=== PATIENT | female | born 1940 | race Caucasian/White ===

== ENCOUNTER 2020-05-18 15:13 | Inpatient (IN) | payer MEDICARE ==
[~2020-05-18] VITALS: Ht 152.4 cm; Wt 63.5 kg
--- NOTE | 2020-05-18 15:40 | NUR ---
patient bibra from home, c/o weakness, on room air, breathing evenly and unlabored. connected to the monitor and pulse ox. kept comfortable, will continue to monitor accordingly.
--- NOTE | 2020-05-18 15:40 | NUR ---
urine collected and sent to lab
[2020-05-18 15:53] LABS: BASOPHILS % (AUTO) 0.5 % (0.0-2.0); EOSINOPHILS % (AUTO) 0.5 % (0.0-6.0); HEMATOCRIT 33 % (33-45); HEMOGLOBIN 10.6 g/dL (11.5-14.8); LYMPHOCYTES # (AUTO) 0.6 /CMM (0.8-4.8); LYMPHOCYTES % (AUTO) 14.2 % (20.0-44.0); MEAN CORPUSCULAR HGB CONC 32 g/dl (31.0-36.0); MEAN CORPUSCULAR VOLUME 94 fL (82-100); MONOCYTES # (AUTO) 1.1 /CMM (0.1-1.30); MONOCYTES % (AUTO) 23.2 % (2.0-12.0); NEUTROPHILS # (AUTO) 2.8 /CMM (1.8-8.9); NEUTROPHILS % (AUTO) 61.6 % (43.0-81.0); PLATELET COUNT (AUTO) 126 /CMM (150-450); RED BLOOD CELL COUNT(AUTO) 3.47 MIL/uL (4.0-5.2); WHITE BLOOD COUNT (AUTO) 4.6 K/uL (4.3-11.0)
[2020-05-18 15:55] LABS: APPEARANCE,URINE Clear (CLEAR); BILIRUBIN,URINE Negative (NEGATIVE); BLOOD, URINE Trace-intact Ery/uL (NEGATIVE); COLOR,URINE Yellow (YELLOW); KETONES,URINE Negative (NEGATIVE); LEUKOCYTE ESTERASE ,URINE Negative (NEGATIVE); NITRITE, URINE Negative (NEGATIVE); PROTEIN,URINE 30 mg/dl (NEGATIVE); UGLUCOSE Negative (NEGATIVE); UROBILINOGEN,URINE 0.2 EU/dL (0.2)
[2020-05-18 16:03] LABS: ALCOHOL, BLOOD < 3 mg/dL (0-0); MAGNESIUM 1.8 mg/dL (1.8-2.4)
[2020-05-18 16:04] LABS: CALCIUM, SERUM 8.3 mg/dL (8.5-10.1); CARBON DIOXIDE 32 mmol/L (21-32); CHLORIDE 103 mmol/L (98-107); CREATININE 1.2 mg/dL (0.6-1.3); GLUCOSE 127 mg/dL (74-106); POTASSIUM 3.8 mmol/L (3.5-5.1); SODIUM SERUM 142 mmol/L (136-145); UREA NITROGEN, BLOOD 20 mg/dL (7-18)
[2020-05-18 16:18] LABS: BACTERIA,URINE Rare /HPF (None Seen); SQUAMOUS EPITHELIAL CELL,UR Few /HPF (None Seen); WBC,URINE NONE SEEN /HPF (0-3)
[2020-05-18 16:20] LABS: ALANINE AMINOTRANSFERASE 28 U/L (12-78); ALBUMIN 2.7 g/dL (3.4-5.0); ALKALINE PHOSPHATASE 73 U/L (46-116); ASPARTATE AMINOTRANSFERASE 33 U/L (15-37); BILIRUBIN,DIRECT 0.1 mg/dL (0.0-0.2); BILIRUBIN,TOTAL 0.2 mg/dL (0.2-1.0); TOTAL PROTEIN, SERUM 6.2 g/dL (6.4-8.2)
--- NOTE | 2020-05-18 16:51 | NUR ---
received a call from the lab for covid 19 result "positive", notified
--- NOTE | 2020-05-18 16:57 | NUR ---
MOVE SHEET SUBMITTED AND CALLED FOR A TELE BED.
[2020-05-18] MEDS ORDERED: IV NS 0.9% 500 ML BAG IV ONE (17:00)
--- NOTE | 2020-05-18 17:01 | NUR ---
[facility] CALLED ITS DR. BHAGAT
--- NOTE | 2020-05-18 17:05 | NUR ---
GOT BED 104
--- NOTE | 2020-05-18 17:05 | NUR ---
MEDRECON DONE: PT LIVES AT HOME WITH 24HR CAREGIVER LACEY CELLPHONE ([phone]) PER CG PT HAS HEARING PROBLEM AND THE HEARING AID IS LEFT AT HOME.
[2020-05-18] MEDS ORDERED: BUPR-51 PO (17:13)
[2020-05-18] MEDS ORDERED: HYDR-3204 MT (17:13)
[2020-05-18] MEDS ORDERED: OLAN10TA3 PO (17:13)
[2020-05-18] MEDS ORDERED: VORT20TA PO (17:13)
[2020-05-18] MEDS ORDERED: HYDR25TA4 PO (17:13)
[2020-05-18] MEDS ORDERED: DONE10TA44 PO (17:13)
[2020-05-18] MEDS ORDERED: METO25TA20 PO (17:13)
[2020-05-18] MEDS ORDERED: LEVO125T8 PO (17:13)
[2020-05-18] MEDS ORDERED: MEMA10TA PO (17:13)
[2020-05-18] MEDS ORDERED: PANT40TA4 PO (17:13)
[2020-05-18] MEDS ORDERED: ONDA-97 PO (17:13)
[2020-05-18] MEDS ORDERED: LOSA50TA39 PO (17:13)
--- NOTE | 2020-05-18 17:18 | NUR ---
report given to Di BRANTLEY for crispin
[2020-05-18 17:37] LABS: BAND % (MANUAL) 5 % (0.0-5.0); LYMPHOCYTES % (MANUAL) 15 % (16-48); MONOCYTES % (MANUAL) 14 % (0-11.0); NEUTROPHILS % (MANUAL) 66 (42-76)
--- NOTE | 2020-05-18 17:50 | NUR ---
wheeled patient via gurney accompanied by RN and emt in no distress, RN at bedside to assume care.
--- NOTE | 2020-05-18 17:55 | NUR ---
DOREEN ANGUIANO BROTHER CELLPHONE [phone] [place] [phone]
[2020-05-18] MEDS ORDERED: ONDANSETRON HCL/PF 4 MG/2 ML VIAL IVP PRN (18:00)
[2020-05-18] MEDS ORDERED: ACETAMINOPHEN 325 MG TABLET PO PRN (18:00)
[2020-05-18] MEDS ORDERED: MAGNESIUM HYDROXIDE 30 ML UDC PO PRN (18:00)
[2020-05-18] MEDS ORDERED: Z GUARD REMEDY 2 OZ OINT TP PRN (18:00)
[2020-05-18] MEDS: CHOLECALCIFEROL 1,000 UNIT TABLET (VIT D3) PO SCH ×2 (18:00→19:11)
[2020-05-18] MEDS: ZINC SULFATE 220 MG CAPSULE PO SCH ×2 (18:00→19:13)
[2020-05-18] MEDS ORDERED: HYDROCODONE/APAP 5/325MG 1 EACH TABLET PO PRN (18:00)
[2020-05-18] MEDS ORDERED: MAG HYDROX/AL HYDROX/SIMETH 30 ML UDC PO PRN (18:00)
[2020-05-18] MEDS: ASCORBIC ACID 500 MG TABLET PO SCH ×2 (18:00→19:11)
[2020-05-18] MEDS ORDERED: ZOLPIDEM TARTRATE 5 MG TABLET PO PRN (18:00)
[2020-05-18] MEDS: ENOXAPARIN SODIUM 30 MG/0.3 ML DISP.SYRIN SQ SCH ×2 (18:00→19:12)
--- NOTE | 2020-05-18 18:08 | NUR ---
OPEN NOTE RECEIVED PATIENT FROM ER VIA JUWANRCORA, ON ROOM AIR, SATURATING WELL WITH 97%, NO SOB, A/OX2, INCONTINENT, SKIN INTACT, UPPER EXTREMITIES SLIGHTLY CONTRACTED, FACE IS ASYMMETRICAL, SAFETY MEASURES IMPLEMENTED, BED IN LOWEST POSITION, CALL LIGHT IN REACH WILL CONT TO MONITOR
--- NOTE | 2020-05-18 18:11 | NUR ---
CALL BROTHER DOREEN TO COLLECT PATIENT INFO, NO RESPONSE, CALLED CAREGIVER LACEY NO RESPONSE
[2020-05-18 18:15] VITALS: BP 147/72
--- NOTE | 2020-05-18 18:36 | NUR ---
Km called back, gave brief hx of patient
--- NOTE | 2020-05-18 18:37 | NUR ---
Patient is agitated, screaming, fighting, trying to leave. MD notified. Per caregiver hx she has antianxiety medications, will follow up with
--- NOTE | 2020-05-18 19:00 | NUR ---
REFUSED ALL MEDS
--- NOTE | 2020-05-18 19:37 | NUR ---
PATIENT IS ON ROOM AIR, IN BED, SATURATING 96%, A/OX1, AGITATED, IV LINE ON R AC, INTACT AND FLUSHED, COMFORT NEEDS ATTENDED, SAFETY MEASURES IMPLEMENTED, BED IN LOWEST POSITION, SIDE RAIL UP X 2 , HOB ELEVATED; WILL ENDORSE PM SHIFT NURSE FOR SHAYY
--- NOTE | 2020-05-18 19:37 | NUR ---
PATIENT REMAINS IN BED, AGITATED, REFUSED MEDICATIONS, NOTIFIED AT 1900
[2020-05-18 20:00] VITALS: BP 144/86
[2020-05-18] MEDS: IV D5/0.45 NACL 1,000 ML IV PRN (22:28)
[2020-05-19] VITALS: BP 115/65
--- NOTE | 2020-05-19 01:40 | NUR ---
RN OPENING NOTE RECEIVED A PATIENT IN BED RESTING ALERT ORIENTED X2 BREATHING IS EVEN AND UNLABORED NO SOB NOT ACUTE DISTRESS AT THIS TIME,ON OXYGEN 6L VIA MASK O2:93%,IV SITE IS ON RIGHT HAND INTACT,PATENT, 0N IV HYDRATION 1/2 NS 50CC/HOURS,ON G-TUBE FEEDING GLUCERNA 1.2 50CC/HOURS, BED IN LOWEST POSITION, SAFETY MEASURE IMPLEMENTED,CONTINUE TO MONITOR. Addendum: 05/19/20 at 0212 by CHRISTINA OJEDA RN RN OPENING NOTE RECEIVED A PATIENT IN BED RESTING ALERT ORIENTED X2 BREATHING IS EVEN AND UNLABORED NO SOB NOT ACUTE DISTRESS NOTED AT THIS TIME, ON OXYGEN 2L/MIN VIA NASAL CANUULA,IV SITE IS ON RIGHT HAND AND RIGHT AC INTACT AND PATENT,ON IV HYDRATION D51/2 NS 75 CC/HR,BED IN LOWEST POSITION,SAFETY MEASURE IMPLEMENTED,CONTINUE TO MONITOR.
[2020-05-19 04:00] VITALS: BP 116/59
--- NOTE | 2020-05-19 06:50 | NUR ---
RN CLOSING NOTE PATIENT REMAINS ALERT ORIENTED X2 VERBALLY RESPONSIVE BREATHING IS EVEN AND UNLABORED NO OXYGEN 2L VIA NC IV D51/2 NS 75CC/HR ON RIGHT HAND,AND RIGHT AC,IV SITE IS INTACT PATENT,KEPT CLEAN AND DRY ALL THE TIME,KEPT COMFORTABLE,ENDORSE NEXT COMING SHIFT FOR CONTINUATION OF CARE.
[2020-05-19 07:02] LABS: BASOPHILS % (AUTO) 0.5 % (0.0-2.0); EOSINOPHILS % (AUTO) 0.7 % (0.0-6.0); HEMATOCRIT 35 % (33-45); HEMOGLOBIN 11.2 g/dL (11.5-14.8); LYMPHOCYTES # (AUTO) 0.9 /CMM (0.8-4.8); LYMPHOCYTES % (AUTO) 24.6 % (20.0-44.0); MEAN CORPUSCULAR HGB CONC 32 g/dl (31.0-36.0); MEAN CORPUSCULAR VOLUME 93 fL (82-100); MONOCYTES # (AUTO) 0.7 /CMM (0.1-1.30); MONOCYTES % (AUTO) 19.9 % (2.0-12.0); NEUTROPHILS % (AUTO) 54.3 % (43.0-81.0); PLATELET COUNT (AUTO) 121 /CMM (150-450); RED BLOOD CELL COUNT(AUTO) 3.73 MIL/uL (4.0-5.2); WHITE BLOOD COUNT (AUTO) 3.7 K/uL (4.3-11.0)
[2020-05-19 07:12] LABS: THYROID STIMULATING HORMONE 0.147 uIU/mL (0.358-3.74)
[2020-05-19] MEDS: PANTOPRAZOLE 40 MG TABLET.DR PO SCH ×2 (07:30→07:41)
--- NOTE | 2020-05-19 07:30 | NUR ---
RN Opening note Received patient in bed, AO x 1 confused, able to responds all stimuli. Does no appears pain or distress, ski is warm to touch, kept clean/dry, intact IV site. Respiratory even and unlabored with oxygen at 2LPM via n/c. Keep bed in locked with elevated HOB for ensure airway. Call light within reach, will continue to monitor for safety.
[2020-05-19 07:38] LABS: CALCIUM, SERUM 8.6 mg/dL (8.5-10.1); PHOSPHORUS 4.4 mg/dL (2.5-4.9); POTASSIUM 3.5 mmol/L (3.5-5.1)
--- NOTE | 2020-05-19 07:40 | NUR ---
patient climbing on bed,unable to follow command,confused,high risk for fall ,bilateral soft wrist restrsint initiated for safety per md.fall risk precaution observed,will continue to monitor.
--- NOTE | 2020-05-19 07:44 | NUR ---
Patient confuse and attempting out of bed, received soft wrist restrain order. Will continue to bed alarm on and monitor for safety.
[2020-05-19 08:00] VITALS: BP 161/91
[2020-05-19] MEDS: LEVOTHYROXINE SODIUM 125 MCG TABLET PO SCH (09:00)
[2020-05-19] MEDS: ZINC SULFATE 220 MG CAPSULE PO SCH (09:00)
[2020-05-19] MEDS: MEMANTINE HCL 5 MG TABLET PO SCH ×2 (09:00→16:19)
[2020-05-19] MEDS: CHOLECALCIFEROL 1,000 UNIT TABLET (VIT D3) PO SCH (09:00)
[2020-05-19] MEDS: DONEPEZIL 5 MG TABLET PO SCH (09:00)
[2020-05-19] MEDS: ASCORBIC ACID 500 MG TABLET PO SCH (09:00)
[2020-05-19] MEDS ORDERED: PANTOPRAZOLE 40 MG TABLET.DR PO SCH (09:30)
[2020-05-19] MEDS ORDERED: ONDANSETRON 4 MG TAB.RAPDIS PO PRN (09:30)
[2020-05-19] MEDS: LOSARTAN POTASSIUM 50 MG TABLET PO SCH (09:30)
[2020-05-19] MEDS: BUPROPION XL 150 MG TAB.ER.24 PO SCH (09:30)
[2020-05-19] MEDS: METOPROLOL TARTRATE 25 MG TABLET PO SCH ×2 (09:30→21:00)
[2020-05-19] MEDS ORDERED: Medication Not On Formulary EA (Hydrocodone Bit/Acetaminophen (Hydrocodon-Acetaminophen MT PRN (09:30)
[2020-05-19] MEDS ORDERED: Medication Not On Formulary EA (Memantine Hcl (Namenda) 10 MG) PO SCH (09:30)
[2020-05-19] MEDS ORDERED: Medication Not On Formulary EA (Ondansetron Hcl 4 MG) PO PRN (09:30)
[2020-05-19 10:18] LABS: EOSINOPHILS % (MANUAL) 2 % (0-4); LYMPHOCYTES % (MANUAL) 27 % (16-48); MONOCYTES % (MANUAL) 19 % (0-11.0); NEUTROPHILS % (MANUAL) 52 (42-76)
[2020-05-19 12:00] VITALS: BP 123/69
[2020-05-19] MEDS: IV D5/0.45 NACL 1,000 ML IV PRN (13:15)
--- NOTE | 2020-05-19 14:55 | NUR ---
relayed to dr. hess patient room air saturation 94%.no new orders.
[2020-05-19 16:00] VITALS: BP 150/71
[2020-05-19] MEDS: ENOXAPARIN SODIUM 30 MG/0.3 ML DISP.SYRIN SQ SCH (18:00)
--- NOTE | 2020-05-19 18:30 | NUR ---
RN Closing note Patient in bed comfortably, still notice pt attempting out of the bed. Skin is warm to touch, kept clean/dry, intact new IV site. Respiratory even and unlabored in room air, no fever or cough during day shift. Keep bed in locked with elevated HOB for ensure airway and aspiration precaution. Call light within reach, will endorse mold laminator.
[2020-05-19 20:00] VITALS: BP 118/62
--- NOTE | 2020-05-19 20:00 | NUR ---
PATIENT IS RESTLESS. TRYING TO GET OUT OF BED AND KICKING ARMD AND LEGS. PATIENT IS ON RESTRAINTS BUT STILL ATTEMPTING TO GET OUT OF BED. PATIENT IS REFUSING PO MEDS SO NOT ABLE TO GIVE ANTIPSYCHOTIC MEDS.
--- NOTE | 2020-05-19 20:20 | NUR ---
CALLED LENKASARAH BOOKKEEPERS SUPERVISOR. NOTIFIED HER ABOUT PATIENTS STATUS AND HER NON COMPLIANCE TO TAKE PO MEDS. SARAH ORDERED ATIVAN IV PUSH 1MG Q6H PRN FOR AGITATION. WILL ADMINISTER AND MONITOR PATIENT.
[2020-05-19] MEDS: LORAZEPAM INJ 2 MG/ML VIAL IV PRN (20:38)
--- NOTE | 2020-05-19 21:06 | NUR ---
METOPROLOL NOT ADMINISTERED AT 2100. PATIENT IS REFUSING TO TAKE PO MEDS. BP IS 118/68 HR AT 86. WILL CONTINUE TO MONITOR.
[2020-05-19] MEDS: OLANZAPINE 10 MG TABLET PO SCH (22:00)
[2020-05-20] VITALS: BP 140/80
[2020-05-20] MEDS: IV D5/0.45 NACL 1,000 ML IV PRN ×2 (01:58→15:29)
[2020-05-20 04:00] VITALS: BP 137/99
[2020-05-20] MEDS: LORAZEPAM INJ 2 MG/ML VIAL IV PRN ×2 (04:26→22:43)
[2020-05-20 06:36] LABS: BASOPHILS % (AUTO) 0.5 % (0.0-2.0); EOSINOPHILS % (AUTO) 0.7 % (0.0-6.0); HEMATOCRIT 38 % (33-45); HEMOGLOBIN 12.3 g/dL (11.5-14.8); LYMPHOCYTES # (AUTO) 0.7 /CMM (0.8-4.8); LYMPHOCYTES % (AUTO) 17.5 % (20.0-44.0); MEAN CORPUSCULAR HGB CONC 33 g/dl (31.0-36.0); MEAN CORPUSCULAR VOLUME 93 fL (82-100); MONOCYTES # (AUTO) 0.5 /CMM (0.1-1.30); MONOCYTES % (AUTO) 13.3 % (2.0-12.0); NEUTROPHILS # (AUTO) 2.6 /CMM (1.8-8.9); PLATELET COUNT (AUTO) 122 /CMM (150-450); RED BLOOD CELL COUNT(AUTO) 4.06 MIL/uL (4.0-5.2); WHITE BLOOD COUNT (AUTO) 3.9 K/uL (4.3-11.0)
[2020-05-20 06:39] LABS: CALCIUM, SERUM 8.5 mg/dL (8.5-10.1); CREATININE 0.9 mg/dL (0.6-1.3); POTASSIUM 3.5 mmol/L (3.5-5.1)
[2020-05-20] MEDS: PANTOPRAZOLE 40 MG TABLET.DR PO SCH (07:30)
[2020-05-20 08:00] VITALS: BP 139/88
--- NOTE | 2020-05-20 08:00 | NUR ---
FINANCIAL AID OFFICER NOTES PATIENT IS NOT AWAKE AND ALERT RESTRAINS ORDER COMPLETED AND STOPPED.
--- NOTE | 2020-05-20 08:15 | NUR ---
DAY TREATMENT CLINICIAN/ART THERAPIST NOTES PATIENT IN BED SLEEPING, ONLY AROUSES WITH DEEP PAIN STIMULI. ON DROPLET ISOLATION. NO SOB OR DISCOMFORT NOTED AT THIS TIME. ON BILATERAL RESTRAINS. NO SOB OR DISCOMFORT NOTED AT THIS TIME. CALL LIGHT WITHIN REACH BED AT THE LOWEST POSITION LOCKED. WILL CONTINUE TO MONITOR THE PATIENT.
--- NOTE | 2020-05-20 08:29 | NUR ---
WOUND CARE CONSULT: REVIEWED CHART, NURSING DOCUMENTATION AND SPOKE WITH RN REGARDING SKIN PROTECTION. DISCUSSED SKIN PROTECTION RECOMMENDATIONS WITH NURSING STAFF. WILL SEE PRN. BARRIENTOS IN AGREEMENT WITH PLAN OF CARE.
[2020-05-20] MEDS ORDERED: Medication Not On Formulary EA (Donepezil Hcl 10 MG) PO SCH (09:00)
[2020-05-20] MEDS: DONEPEZIL 5 MG TABLET PO SCH (09:00)
[2020-05-20] MEDS: ZINC SULFATE 220 MG CAPSULE PO SCH (09:00)
[2020-05-20] MEDS: ASCORBIC ACID 500 MG TABLET PO SCH (09:00)
[2020-05-20] MEDS: LEVOTHYROXINE SODIUM 125 MCG TABLET PO SCH (09:00)
[2020-05-20] MEDS: LOSARTAN POTASSIUM 50 MG TABLET PO SCH (09:00)
[2020-05-20] MEDS: METOPROLOL TARTRATE 25 MG TABLET PO SCH ×2 (09:00→20:53)
[2020-05-20] MEDS: MEMANTINE HCL 5 MG TABLET PO SCH ×2 (09:00→17:39)
[2020-05-20] MEDS: CHOLECALCIFEROL 1,000 UNIT TABLET (VIT D3) PO SCH (09:00)
[2020-05-20] MEDS: BUPROPION XL 150 MG TAB.ER.24 PO SCH (09:00)
--- NOTE | 2020-05-20 10:01 | NUR ---
COMPRESSOR HOUSE OPERATOR NOTES MORNING PO MEDS NOT ADMINISTERED MOTORCYLES FINAL INSPECTOR ROOPA AWARE
[2020-05-20 12:00] VITALS: BP 139/83
[2020-05-20 16:00] VITALS: BP 154/97
--- NOTE | 2020-05-20 16:21 | NUR ---
SAWMILL HAND NOTES PATIENT IS MORE ALERT AND SHE WAS ABLE TO EAT A CAN OF JELO. TRIES TO GET OUT OF THE BED AND REMOVES IV. PUT THE PATIENTS BACK TO RESTRAINS.
[2020-05-20] MEDS: ENOXAPARIN SODIUM 30 MG/0.3 ML DISP.SYRIN SQ SCH (17:40)
--- NOTE | 2020-05-20 19:10 | NUR ---
RN NOTE RECEIVED PATIENT IN BED RESTING WITH HOB ELEVATED. BREATHING EVEN AND NON LABORED, NO SOB NOTED AT THIS TIME. ON O2 2 L VIA NC, SATURATION IS 100% AT THIS TIME. PATIENT IS AWAKE, ALERT, CONFUSED. ON ISOLATION FOR POSITIVE COVID. IV SITE ON RIGHT WRIST GAUGE 20 IS CLEAN, DRY, AND PATENT. ON IV FLUIDS D5 HALF NS RUNNING AT 75 ML/HR. ON BILATERAL SOFT WRIST RESTRAINTS. IN NO APPARENT DISTRESS NOTED AT THIS TIME. CALL LIGHT IS WITHIN EASY REACH. WILL CONTINUE TO MONITOR.
--- NOTE | 2020-05-20 19:27 | NUR ---
SURGICAL SERVICES MANAGER NOTES PATIENT IN BED, A/OX1 ON RESTRAINS. NO SOB OR DISCOMFORT NOTED AT THIS TIME. ALL NEEDS ATTENDED, MEDICATIONS ADMINISTRATED. NO MAJOR CHANGES DURING THE DAY. PATIENT WAS ABLE TO TOLERATE CLEAR DIET. REPORT GIVEN TO FLOUR MIXER HELPER NURSE FOR SHAYY.
[2020-05-20 20:00] VITALS: BP 170/89
[2020-05-20] MEDS ORDERED: METOPROLOL TARTRATE INJ 5 MG/5 ML AMPUL IVP ONE (21:00)
[2020-05-20] MEDS: OLANZAPINE 10 MG TABLET PO SCH (22:00)
[2020-05-20] MEDS ORDERED: hydrALAZINE HCL IV 20 MG VIAL IV PRN (22:00)
--- NOTE | 2020-05-20 22:00 | NUR ---
RN NOTE PATIENT REFUSED ZYPREXA AND LOPRESSOR MED. PATIENT'S BP IS 170/89. NOTIFIED SARAH KELLOGG NP. RECEIVED NEW ORDER FOR HYDRALAZINE 10 MG IV X1. ORDERS NOTED AND CARRIED OUT. WILL CONTINUE TO MONITOR.
[2020-05-21] VITALS: BP 131/90
[2020-05-21 04:00] VITALS: BP 173/83
--- NOTE | 2020-05-21 04:15 | NUR ---
RN NOTE NOTED PATIENT'S BP OF 173/83 AROUND THIS TIME. NOTIFIED SCHEDULER CONVEYOR SARAH KELLOGG, RECEIVED NEW ORDER OF HYDRALAZINE 10MG IVP Q6H PRN FOR BP >160. ORDER NOTED AND CARRIED OUT.
[2020-05-21] MEDS: IV D5/0.45 NACL 1,000 ML IV PRN (04:16)
[2020-05-21] MEDS ORDERED: hydrALAZINE HCL IV 20 MG VIAL IV PRN (04:30)
[2020-05-21] MEDS: LORAZEPAM INJ 2 MG/ML VIAL IV PRN (05:27)
--- NOTE | 2020-05-21 06:37 | NUR ---
RN NOTE PATIENT REMAINED STABLE THROUGHOUT THE NIGHT. NO SIGNIFICANT CHANGES NOTED. REPOSITIONED Q2H. ALL DUE MEDS GIVEN AND TOLERATED WELL. PATIENT NOTED WITH ANXIETY DURING THE NIGHT. PRN ATIVAN GIVEN ORDERED. ALL NEEDS ATTENDED AND MET. PATIENT IS KEPT CLEAN, DRY, AND COMFORTABLE. IN NO APPARENT DISTRESS NOTED AT THIS TIME. WILL ENDORSE TO AM SHIFT RN FOR CONTINUATION OF CARE.
[2020-05-21 07:10] LABS: BASOPHILS % (AUTO) 0.3 % (0.0-2.0); EOSINOPHILS % (AUTO) 0.3 % (0.0-6.0); HEMATOCRIT 41 % (33-45); HEMOGLOBIN 13.2 g/dL (11.5-14.8); LYMPHOCYTES # (AUTO) 0.6 /CMM (0.8-4.8); LYMPHOCYTES % (AUTO) 16.2 % (20.0-44.0); MEAN CORPUSCULAR HGB CONC 33 g/dl (31.0-36.0); MEAN CORPUSCULAR VOLUME 92 fL (82-100); MONOCYTES # (AUTO) 0.6 /CMM (0.1-1.30); MONOCYTES % (AUTO) 14.3 % (2.0-12.0); NEUTROPHILS # (AUTO) 2.7 /CMM (1.8-8.9); NEUTROPHILS % (AUTO) 68.9 % (43.0-81.0); PLATELET COUNT (AUTO) 128 /CMM (150-450); RED BLOOD CELL COUNT(AUTO) 4.38 MIL/uL (4.0-5.2); WHITE BLOOD COUNT (AUTO) 3.9 K/uL (4.3-11.0)
[2020-05-21 07:22] LABS: CALCIUM, SERUM 8.7 mg/dL (8.5-10.1); CREATININE 0.9 mg/dL (0.6-1.3); POTASSIUM 3.5 mmol/L (3.5-5.1)
[2020-05-21] MEDS: PANTOPRAZOLE 40 MG TABLET.DR PO SCH (07:30)
[2020-05-21 08:00] VITALS: BP 122/82
--- NOTE | 2020-05-21 08:00 | NUR ---
CONSTRUCTION CODE ADMINISTRATOR NOTE RECEIVED PATIENT IN BED ON 1 LITER OF OXYGEN, 02 SAT 97% PT STILL SLEEPING AND DROWSY AND SLIGHTLY MOVING IN BED RESPONSIVE TO TACTILE AND VERBAL STIMULI. ON TELE MONITOR st 109. PT HAS R WRIST HEP LOCK INTACT AND FLUSHED WELL. ON IV FLUID ORDERED. RIGHT CHEEK IS RED IN COLOR. ADJUNCT PROFESSOR OF VOICE ROOPA NOTIFIED. OK WITH CLEAR LIQUID DIET. BED IN LOCK AND LOWEST POSITION. CALL LIGHT WITHIN REACH. UNABLE TO GIVE MEDICATION OR GIVE BREAKFAST. WILL CONTINUE TO MONITOR.
[2020-05-21] MEDS: DONEPEZIL 5 MG TABLET PO SCH (09:00)
[2020-05-21] MEDS: LEVOTHYROXINE SODIUM 125 MCG TABLET PO SCH (09:00)
[2020-05-21] MEDS: BUPROPION XL 150 MG TAB.ER.24 PO SCH (09:00)
[2020-05-21] MEDS: METOPROLOL TARTRATE 25 MG TABLET PO SCH (09:00)
[2020-05-21] MEDS: CHOLECALCIFEROL 1,000 UNIT TABLET (VIT D3) PO SCH (09:00)
[2020-05-21] MEDS ORDERED: HYDROCHLOROTHIAZIDE 25 MG TABLET PO SCH (09:00)
[2020-05-21] MEDS: ZINC SULFATE 220 MG CAPSULE PO SCH (09:00)
[2020-05-21] MEDS: MEMANTINE HCL 5 MG TABLET PO SCH (09:00)
[2020-05-21] MEDS: LOSARTAN POTASSIUM 50 MG TABLET PO SCH (09:00)
[2020-05-21] MEDS: ASCORBIC ACID 500 MG TABLET PO SCH (09:00)
--- NOTE | 2020-05-21 10:18 | NUR ---
BODY SHOP MECHANIC NOTES [place] ENTERTAINMENT MANAGER NOTIFIED THAT PT IS LETHARGIC AND DROWSY RIGHT NOW. UNABLE TO GIVE MEDICINE AND BREAKFAST. STILL WANTS TO DISCHARGE PATIENT LATER ON. WILL CONTACT WITH NERVE SPECIALIST.
[2020-05-21 12:00] VITALS: BP 131/72
--- NOTE | 2020-05-21 12:30 | NUR ---
telegraphic typewriter operator chief note spoke with immigration case manager and caregiver tatiana about discharge home, ambulance will come about 3 pm
--- NOTE | 2020-05-21 13:52 | NUR ---
BRANCH EXAMINER NOTE PATIENT FED BY PRODUCT LEAD, ATE 25% OF LUNCH,A LITTLE MORE AWAKE, ALL NEEDS ATTENDED, WILL MONITOR
--- NOTE | 2020-05-21 15:42 | NUR ---
MECHANIC SENIOR NOTES AMBULANCE ARRIVES. REPORT GIVEN. BUILDING CODE INSPECTOR REMOVED. HEP LOCK REMOVED. DRY PRESSURE DRESSING REMOVED. NO SOB NOTED BUT PT STILL SLEEPING AND RESPONDS TO TACTILE STIMULI. STILL DOES NOT OPEN EYES. SPANISH INSTRUCTOR RICKEY NOTIFIED. STILL OK TO DISCHARGE. ALL DISCHARGE INSTRUCTION GIVEN TO AMBULANCE CREW. BELONGINGS WERE CHECKED WENT HOME IN WITH NO DISTRESS..
--- NOTE | 2020-05-21 15:42 | NUR ---
PHOTOGRAPHER'S ASSISTANT NOTES PATIENT STILL SLEEPING BUT RESPONDS TO TACTILE STIMULI. PSYCHOPAEDIC NURSE ROOPA AWARE AND STILL ORDERING TO DISCHARGE. BP 124/62,HR 78, 02 SAT 93% ON ROOM AIR.
--- NOTE | 2020-05-21 15:56 | NUR ---
BUS OPERATOR NOTES SPOKE WITH CHUTE WORKER DI AND NOTIFIED HER THAT THE PATIENT WAS SENT HOME WITH THE AMBULANCE. ALSO NOTIFIED THAT SHE WAS NOT GIVEN AND MEDICATIONS OR FOOD BECAUSE SHE WAS SLEEPING AND LETHARGIC BUT RESPONSIVE TO TACTILE STIMULI.
== END 2020-05-21 15:30 | disposition home health service (06) | DRG 177 ==
LOC: ER 15:15 → TELE1 17:09
DX: U07.1 COVID-19 (principal); R40.2343 Coma scale, best motor response, flexion withdrawal, at hospital admission; E44.0 Moderate protein-calorie malnutrition; G93.40 Encephalopathy, unspecified; F03.90 Unspecified dementia, unspecified severity, without behavioral disturbance, psychotic disturbance, mood disturbance, and anxiety; E86.0 Dehydration; E03.9 Hypothyroidism, unspecified; D69.6 Thrombocytopenia, unspecified; Z68.23 Body mass index [BMI] 23.0-23.9, adult; D64.9 Anemia, unspecified; E78.5 Hyperlipidemia, unspecified; F09 Unspecified mental disorder due to known physiological condition; I10 Essential (primary) hypertension; G24.9 Dystonia, unspecified; F32.9 Major depressive disorder, single episode, unspecified; D72.819 Decreased white blood cell count, unspecified; I67.2 Cerebral atherosclerosis; Z79.899 Other long term (current) drug therapy; R40.2143 Coma scale, eyes open, spontaneous, at hospital admission; R40.2243 Coma scale, best verbal response, confused conversation, at hospital admission
CPT/HCPCS: 36415; 70450-TC; 71045-TC; 80048-TC; 80061-TC; 80076-TC; 80305; 81000-TC; 83605-TC; 83735-TC; 84100-TC; 84439-TC; 84443-TC; 84481; 84484-TC; 85025-TC; 85730-TC; 86140-TC; 87040-TC; 87081-TC; 87086-TC; 97530-TC; G0378; G0480; J0360; J1650; J2060; J3490; J7040

== ENCOUNTER 2020-05-28 08:47 | Emergency (ER) | payer MEDICARE ==
[~2020-05-28] VITALS: Ht 152.4 cm; Wt 63.5 kg
[~2020-05-28 08:47] MED LIST: BUPR-51 PO; DONE10TA44 PO; HYDR-3204 MT; HYDR25TA4 PO; LEVO125T8 PO; LOSA50TA39 PO; MEMA10TA PO; METO25TA20 PO; OLAN10TA3 PO; ONDA-97 PO; PANT40TA4 PO; VORT20TA PO
--- NOTE | 2020-05-28 08:55 | NUR ---
dr martinez at bedside for eval.
--- NOTE | 2020-05-28 08:58 | NUR ---
pt bibra from home to er bed 06. per injection moulding machine operator report, recieved call from patients caregiver stating that patient is c/o sob and chest pain. pt was at hospitalized for "pneumonia covid" and supposed to be isolated. upon assessment patient denies any discomfort. on monitor. stable vitals. awaiting md quarles.
--- NOTE | 2020-05-28 09:04 | NUR ---
iv line started blood drawn and sent to lab.
[2020-05-28 09:11] LABS: BASOPHILS % (AUTO) 0.5 % (0.0-2.0); HEMATOCRIT 36 % (33-45); HEMOGLOBIN 11.8 g/dL (11.5-14.8); LYMPHOCYTES # (AUTO) 0.5 /CMM (0.8-4.8); LYMPHOCYTES % (AUTO) 9.9 % (20.0-44.0); MEAN CORPUSCULAR HGB CONC 33 g/dl (31.0-36.0); MEAN CORPUSCULAR VOLUME 91 fL (82-100); MONOCYTES # (AUTO) 0.6 /CMM (0.1-1.30); MONOCYTES % (AUTO) 12.8 % (2.0-12.0); NEUTROPHILS # (AUTO) 3.8 /CMM (1.8-8.9); NEUTROPHILS % (AUTO) 75.8 % (43.0-81.0); PLATELET COUNT (AUTO) 224 /CMM (150-450); RED BLOOD CELL COUNT(AUTO) 3.97 MIL/uL (4.0-5.2)
--- NOTE | 2020-05-28 09:15 | NUR ---
radiology at bedside for chest xray.
[2020-05-28 09:20] LABS: CALCIUM, SERUM 8.6 mg/dL (8.5-10.1); POTASSIUM 3.7 mmol/L (3.5-5.1)
[2020-05-28 09:33] LABS: ALBUMIN 2.9 g/dL (3.4-5.0); BILIRUBIN,DIRECT 0.2 mg/dL (0.0-0.2); BILIRUBIN,TOTAL 0.5 mg/dL (0.2-1.0)
--- NOTE | 2020-05-28 10:03 | NUR ---
CALLED NIK IN SHE WILL CALL US IN 30-45 MINS
--- NOTE | 2020-05-28 11:03 | NUR ---
am west eta [id number]
[2020-05-28 11:33] VITALS: BP 142/76
--- NOTE | 2020-05-28 11:33 | NUR ---
IV removed. Catheter intact and site benign. Pressure and 4x4 applied to site. No bleeding noted.Patient discharged to home in stable condition. Patient was picked up by [facility] [address]. Written and verbal after care instructions given. EMS verbalizes understanding of instruction.
== END 2020-05-28 11:35 | disposition home or self-care (01) ==
LOC: ER 08:48
DX: U07.1 COVID-19 (principal); J12.89 Other viral pneumonia; E78.5 Hyperlipidemia, unspecified; F03.90 Unspecified dementia, unspecified severity, without behavioral disturbance, psychotic disturbance, mood disturbance, and anxiety; E03.9 Hypothyroidism, unspecified; I11.0 Hypertensive heart disease with heart failure; I50.9 Heart failure, unspecified; Z79.890 Hormone replacement therapy; R05 Cough
CPT/HCPCS: 36415; 71045-TC; 80048-TC; 80076-TC; 83605-TC; 83880; 84484-TC; 85025-TC; 85730-TC; 87040-TC